=== PATIENT | female | born 1965 | race Caucasian/White ===

== ENCOUNTER → 2023-11-24 14:26 | Outpatient (REF) | payer OTHER, SELFPAY | LOC: WDC 14:26 | PROVIDERS: ATTENDING PHYSICIAN Family Medicine | DX: Z12.31 Encounter for screening mammogram for malignant neoplasm of breast (principal) | CPT/HCPCS: 77063; 77067 ==

== ENCOUNTER → 2024-04-22 07:21 | Outpatient (REF) | payer OTHER, SELFPAY | LOC: EMG 07:21 | PROVIDERS: ATTENDING PHYSICIAN Family Medicine | DX: M21.371 Foot drop, right foot (principal); R20.2 Paresthesia of skin; R20.0 Anesthesia of skin | CPT/HCPCS: 95886; 95910 ==